=== PATIENT | female | born 1955 | race Caucasian/White ===

== ENCOUNTER 2024-07-04 07:44 | Outpatient (CLI) | payer MEDICARE, BC, SELFPAY | END 2024-07-04 07:45 | disposition home or self-care (01) | PROVIDERS: Visit Provider Physician Assistant Medical | DX: R39.9 Unspecified symptoms and signs involving the genitourinary system (principal); N39.0 Urinary tract infection, site not specified | CPT/HCPCS: 87086; 87186 ==